=== PATIENT | female | born 1965 | race Caucasian/White ===

== ENCOUNTER 2018-04-24 19:24 | Inpatient (IN) | payer OTHER ==
[~2018-04-24] VITALS: Ht 160 cm; Wt 70.3 kg
--- NOTE | 2018-04-24 21:55 | NUR ---
PRE ADMISSION NOTE Pt is a 52 y/o female seen at intake, A&Ox4 and presents with anxiety, flushed skin, poor concentration, and disheveled appearance. Pt is a poor historian and has poor short-term and long-term memory recall. Pt is currently intoxicated from ETOH. Pt reports that she typically drinks 1.5 L of Chardonnay daily for the past 3 weeks. Pt is ambulatory with steady gait. Vital signs: BP: 134/88, HR 80, T 98.4, RR 16, 02 97% and pain 4/10 in lower back. Pt reports PMH of HTN, hyperlipidemia, HTN, back injury, anxiety, depression. Pt reports that she might have pre diabetes. Pt brought home medications, but cannot recall names other than taking Trazodone 100 mg for sleep. Educated pt that any controlled substances will not be given back, pt verbalized understanding. Educated pt about policies and rules of the unit including handling of contraband and taking vital signs Q4H. Will continue care of patient upon arrival on unit.
[2018-04-24] MEDS ORDERED: ONDANSETRON 4 MG/2 ML VIAL IM PRN (22:00)
[2018-04-24] MEDS ORDERED: LOPERAMIDE HCL 2 MG CAPSULE PO PRN (22:00)
[2018-04-24] MEDS ORDERED: LORAZEPAM 1 MG TABLET PO PRN ×2 (22:00)
[2018-04-24] MEDS ORDERED: MAGNESIUM HYDROXIDE 30 ML LIQUID UDC PO PRN (22:00)
[2018-04-24] MEDS ORDERED: MAG HYDROX/AL HYDROX/SIMETH 30 ML LIQUID UDC PO PRN (22:00)
[2018-04-24] MEDS ORDERED: HYDROXYZINE PAMOATE 25 MG CAPSULE PO PRN (22:00)
[2018-04-24] MEDS ORDERED: CLONIDINE HCL 0.1 MG TABLET PO PRN (22:00)
[2018-04-24] MEDS ORDERED: ONDANSETRON ODT 4 MG TAB.RAPDIS SL PRN (22:00)
[2018-04-24] MEDS ORDERED: MIRALAX 17 GM POWD.PACK PO PRN (22:00)
[2018-04-24] MEDS ORDERED: LORAZEPAM 2 MG/1 ML VIAL IM PRN (22:00)
[2018-04-24] MEDS ORDERED: DICYCLOMINE HCL 20 MG TABLET PO PRN (22:00)
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
[2018-04-24 23:11] LABS: BASOPHILS % (AUTO) 0.6 % (0.0-2.0); EOSINOPHILS % (AUTO) 0.1 % (0.0-7.0); HEMATOCRIT 39.9 % (31.2-41.9); HEMOGLOBIN 13.7 g/dL (10.9-14.3); LYMPHOCYTES # (AUTO) 1.3 K/uL (20.0-40.0); LYMPHOCYTES % (AUTO) 21.4 % (20.5-51.5); MEAN CORPUSCULAR HEMOGLOBIN 31.9 uug (24.7-32.8); MEAN CORPUSCULAR HGB CONC 34 g/dL (32.3-35.6); MEAN CORPUSCULAR VOLUME 92.9 fL (75.5-95.3); MONOCYTES # (AUTO) 0.3 K/uL (2.0-10.0); MONOCYTES % (AUTO) 4.9 % (0.0-11.0); NEUTROPHILS # (AUTO) 4.4 K/uL (1.8-8.9); PLATELET COUNT (AUTO) 247 K/uL (179-408)
[2018-04-24] MEDS ORDERED: FOLI-118 PO (23:13)
[2018-04-24] MEDS ORDERED: TRAZ-214 PO (23:13)
[2018-04-24] MEDS ORDERED: DISU250T7 PO (23:13)
[2018-04-24] MEDS ORDERED: HYDR-3026 PO (23:13)
[2018-04-24] MEDS ORDERED: MUPI22OI2 (23:13)
[2018-04-24] MEDS ORDERED: DULO30CA2 PO (23:13)
[2018-04-24] MEDS ORDERED: NALT50TA PO (23:13)
[2018-04-24] MEDS ORDERED: ATOR40TA PO (23:13)
[2018-04-24] MEDS ORDERED: THYR30TA2 PO (23:13)
[2018-04-24] MEDS ORDERED: THIA100T13 PO (23:13)
[2018-04-24] MEDS ORDERED: FLUO40CA49 PO (23:13)
[2018-04-24] MEDS ORDERED: GLUC-128 PO (23:13)
[2018-04-24 23:20] LABS: BILIRUBIN,TOTAL 0.5 mg/dL (0.2-1.0); CREATININE 0.8 mg/dL (0.6-1.3); MAGNESIUM 1.5 mg/dL (1.8-2.4); TOTAL PROTEIN, SERUM 7.2 g/dL (6.4-8.2)
[2018-04-24 23:29] LABS: THYROID STIMULATING HORMONE 0.925 mIU/mL (0.358-3.740)
[2018-04-25] VITALS: BP 146/97
[2018-04-25] MEDS ORDERED: THIAMINE HCL 200 MG/2 ML VIAL IM ONE
--- NOTE | 2018-04-25 | NUR ---
CIWA DEFERRED Pt is awake, appears restless and has racing thoughts. Pt intoxicated, CIWA deferred. Safety measures in place. Call light within reach. Will continue to monitor.
[2018-04-25] MEDS ORDERED: TRAZODONE 50 MG TABLET PO SCH (02:00)
[2018-04-25] MEDS: IBUPROFEN 600 MG TABLET PO PRN ×2 (02:08→20:58)
--- NOTE | 2018-04-25 02:08 | NUR ---
PRN ZOFRAN ODT AND MOTRIN ADMINISTRATION Pt reports mild nausea without vomiting. Pt states, "I feel like I just need to get out the alcohol." Pt reports headache and lower back pain 5/10. Safety measures in place. Call light within reach. Will continue to monitor.
[2018-04-25 02:14] LABS: *AMPHETAMINE, URINE NEGATIVE (NEGATIVE); *BARBITURATE, URINE NEGATIVE (NEGATIVE); *CANNABINOID, URINE NEGATIVE (NEGATIVE); *COCCAINE, URINE NEGATIVE (NEGATIVE); *OPIATE, URINE NEGATIVE (NEGATIVE); *PHENCYCLIDINE SCREEN,URINE NEGATIVE (NEGATIVE); *URINE HCG, QUAL NEGATIVE (NEGATIVE)
[2018-04-25] MEDS ORDERED: immune support (02:15)
[2018-04-25] MEDS ORDERED: ASPI-1165 PO (02:20)
[2018-04-25] MEDS ORDERED: [UNRECOGNIZED DRUG - CODE] OP (02:20)
[2018-04-25] MEDS ORDERED: D ME PO (02:20)
[2018-04-25] MEDS ORDERED: NAPR220T66 PO (02:20)
--- NOTE | 2018-04-25 02:38 | NUR ---
CARMENN MARTÍN ODT REASSESSMENT Pt reports nausea reduced to tolerable level, able to tolerable fluids and snacks. Safety measures in place. Call light within reach. Will continue to monitor.
[2018-04-25 04:00] VITALS: BP 142/86
--- NOTE | 2018-04-25 04:00 | NUR ---
CIWA 4 Pt presents with anxiety, restlessness, difficulty falling asleep, increased HR.
[2018-04-25] MEDS: ACETAMINOPHEN 325 MG TABLET PO PRN (04:52)
--- NOTE | 2018-04-25 04:52 | NUR ---
PRN TYLENOL ADMINISTRATION Pt reports back pain 11/30. Safety measures in place. Call light within reach. Will continue to monitor.
--- NOTE | 2018-04-25 05:52 | NUR ---
PRN TYLENOL REASSESSMENT Pt laying in bed with eyes closed, medication noted effective. Respirations even and unlabored. Safety measures in place. Call light within reach. Will continue to monitor.
--- NOTE | 2018-04-25 07:12 | NUR ---
END OF SHIFT Pt is a 52 y/o female admitted on 04/24/18 for ETOH withdrawal. No ordered taper at this time, had PRN Ativan available. Pt presented with anxiety, restlessness, flushed skin, headache, back pain, elevated HR and nausea. Pt received one time order for Trazodone 50 mg for sleep and PRN Zofran odt, Motrin and Tylenol. Mg 1.5, to be replaced in AM. Last CIWA 4. Pt slept 2 hours. Intake 2000 ml, void x 3, stool x 0. Safety measures in place. Call light within reach. Pts needs have been met. Endorsed to day shift nurse.
[2018-04-25 08:00] VITALS: BP 117/71
--- NOTE | 2018-04-25 08:15 | NUR ---
START OF SHIFT: Received Pt laying in bed sleeping with respirations even and unlabored. Call yin in reach. Bed locked and low. Side rails up x 2. Will awaken for assessment and med pass later.
[2018-04-25] MEDS ORDERED: MAGNESIUM OXIDE 400 MG TABLET PO ONE (09:00)
[2018-04-25] MEDS ORDERED: TUBERCULIN,PURIF.PROT.DERIV. 5 TU/0.1 ML TEST ID ONE (09:00)
--- NOTE | 2018-04-25 09:40 | NUR ---
Pt is A/O x 4. She presents with flushed face. Her hands are tremulous.Anxous mood and congruent affect noted. CIWA 11. She reports anxiety,restlessness,weakness and irritability. Walker noted at bedside to assist with ambulation.Encouraged her to ask for help when getting out of bed. PRN Ativan 1 mg po given to manage s/s of w/d. Encouraged increased fluids to assist in facilitating detox process. Will continue to monitor and offer support.
[2018-04-25] MEDS: MULTIVITAMINS,THERAPEUTIC TABLET PO SCH (09:42)
[2018-04-25] MEDS: FOLIC ACID 1 MG TABLET PO SCH (09:42)
[2018-04-25] MEDS: THIAMINE HCL 100 MG TABLET PO SCH (09:42)
[2018-04-25] MEDS ORDERED: 6 DAY PHENOBARBITAL TAPER -SERENITY PROTOCOL PO PRN (10:15)
--- NOTE | 2018-04-25 10:40 | NUR ---
PRN Ativan effective. CIWA 7. She states she feels fatigued and would like to sleep. Encouraged bed rest and fluids today.
[2018-04-25] MEDS: DULOXETINE 30 MG CAPSULE.DR PO SCH (11:30)
[2018-04-25 12:00] VITALS: BP 127/76
--- NOTE | 2018-04-25 12:30 | NUR ---
CIWA Deferred as Pt is asleep. Safety measures in place. Call yin in reach.
[2018-04-25] MEDS: PHENOBARBITAL 60 MG TABLET PO SCH ×2 (15:19→20:58)
[2018-04-25 16:00] VITALS: BP 122/78
--- NOTE | 2018-04-25 19:30 | NUR ---
START OF SHIFT Pt is a 52 y/o female admitted on 04/24/18 for ETOH withdrawal. Pt is on a 5 day Phenobarbital taper that started today, tolerating well. Pt received PRN Ativan 1 mg and last CIWA 11 during day shift. Upon assessment pt presents with anxiety, poor concentration, tremors, headache, flushed skin, sweats, restless legs, pins/needles sensation in lower extremities, difficultly falling asleep, elevated HR and is withdrawn. Medications due. Safety measures in place. Call light within reach. Will continue to monitor.
--- NOTE | 2018-04-25 19:32 | NUR ---
END OF SHIFT: Pt started on Phenobarbital taper this afternoon. She received Ativan 1 mg PO PRN per MD this AM and effective. She stayed in bed and slept most of shift. Last CIWA 11. She is a poor historian but did mention having been diagnosed with Wernicke-Korsakoff in the past. She was also given a PT evaluation. Encouraged her to ask for assistance to bathroom. Safety measures in place. Will pass shift report to oncoming night nurse.
[2018-04-25 20:00] VITALS: BP 148/91
--- NOTE | 2018-04-25 20:00 | NUR ---
CIWA 16 Pt presents with anxiety, poor concentration, tremors, headache, flushed skin, sweats, restless legs, pins/needles sensation in lower extremities, difficultly falling asleep, elevated HR and is withdrawn.
[2018-04-25] MEDS: TRAZODONE 100 MG TABLET PO SCH (20:58)
[2018-04-25] MEDS: ATORVASTATIN 40 MG TABLET PO SCH (20:58)
--- NOTE | 2018-04-25 20:58 | NUR ---
PRN MOTRIN ADMINISTRATION Pt reports headache and neck and back pain 01/30. Safety measures in place. Call light within reach. Will continue to monitor.
--- NOTE | 2018-04-25 21:58 | NUR ---
PRN MOTRIN REASSESSMENT Pt reports pain reduced to tolerable level in head, neck and back. Safety measures in place. Call light within reach. Will continue to monitor.
[2018-04-26] VITALS: BP 146/86
--- NOTE | 2018-04-26 | NUR ---
CIWA DEFERRED Pt laying in bed with eyes closed, CIWA deferred, to be assessed when pt is awake per orders. Respirations even and unlabored. Safety measures in place. Call light within reach. Will continue to monitor.
[2018-04-26 04:00] VITALS: BP 145/87
[2018-04-26] MEDS: THYROID 60 MG TABLET PO SCH (06:57)
--- NOTE | 2018-04-26 07:06 | NUR ---
END OF SHIFT Pt is a 52 y/o female admitted on 04/24/18 for ETOH withdrawal. Pt is on a 5 day Phenobarbital taper that started on 04/25/18, tolerating well. Pt presented with anxiety, poor concentration, tremors, headache, flushed skin, sweats, restless legs, pins/needles sensation in lower extremities, difficultly falling asleep, elevated HR and was withdrawn. Scheduled medications and PRN Motrin administered, effective in S/S of withdrawal as verbalized by pt. Last CIWA 16. Pt slept 9 hours. Intake 1182 ml, void x 2, stool x 0. Safety measures in place. Call light within reach. Pts needs have been met. Endorsed to day shift nurse.
[2018-04-26 08:00] VITALS: BP 134/79
--- NOTE | 2018-04-26 08:00 | NUR ---
Start Of Shift / CIWA 16 Pt is a 52 y/o M admitted on 04/20/18 for ETOH withdrawal and opiate withdrawal. Pt continues on a 5 day phenobarbital taper; today is the second day and tolerating well. Received pt a/ox4, respirations even and unlabored. Pt has a disheveled appearance, flushed, presents anxiety, agitation, restlessness, states she has a groggy head, c/o burning and tingling feet which she states she had before but is increased, headache /10, diarrhea, and tremors are noted. Pt states she likes the door kept open and requests that no one closes it. Educated pt with todays med regimen and plan of care. Encouraged pt to increase fluids to facilitate in detox. Side rails upx2, bed in lowest position. Call light is within reach. Safety measures in place. Will continue to monitor.
[2018-04-26] MEDS: MULTIVITAMINS,THERAPEUTIC TABLET PO SCH (08:44)
[2018-04-26] MEDS: THIAMINE HCL 100 MG TABLET PO SCH (08:44)
[2018-04-26] MEDS: FOLIC ACID 1 MG TABLET PO SCH (08:44)
[2018-04-26] MEDS: FLUOXETINE HCL 20 MG CAPSULE PO SCH (08:45)
[2018-04-26] MEDS: PHENOBARBITAL 60 MG TABLET PO SCH ×4 (08:45→21:05)
[2018-04-26] MEDS: DULOXETINE 30 MG CAPSULE.DR PO SCH (08:45)
[2018-04-26] MEDS: ACETAMINOPHEN 325 MG TABLET PO PRN (08:54)
[2018-04-26] MEDS: IBUPROFEN 600 MG TABLET PO PRN ×2 (08:54→21:17)
--- NOTE | 2018-04-26 08:54 | NUR ---
PRN Ibuprofen 600 mg, tylenol 650 mg, imodium 4 mg, po prns given for diarrhea, and headache 7/10 pain. Will monitor and reassess.
--- NOTE | 2018-04-26 09:54 | NUR ---
Reassessment Pt verbalized prn meds have been effective for decreasing headache to 3/10 and pt states she is not had an episode of diarrhea yet. Will continue to monitor.
--- NOTE | 2018-04-26 10:26 | NUR ---
Therapist prompted client to attend group therapy.
[2018-04-26 12:00] VITALS: BP 140/85
--- NOTE | 2018-04-26 12:00 | NUR ---
CIWA 16 Pt appears flushed, exhibits racing thoughts, flight of ideas, increased anxiety, agitation, restlessness, states she has a groggy head, c/o burning and tingling and pain in the feet, increase in headache 7/10, diarrhea, and tremors are noted. Scheduled phenobarbital to be given. Encouraged pt to use diversional non-pharmalogical methods and deep breathing exercises. Will continue to monitor.
[2018-04-26 14:11] LABS: HEPATITIS B SURFACE AG Negative (Negative)
[2018-04-26 16:00] VITALS: BP 135/86
--- NOTE | 2018-04-26 16:30 | NUR ---
CIWA 15 Pt just have exited group, appears flushed and anxious, exhibits racing thoughts, flight of ideas, agitation, restlessness, c/o pain and burning sensation on the feet /10, headache /10, diarrhea, and tremors are noted. Pt stated she was not feeling social and wanted to stay in her room for dinner. Scheduled phenobarbital to be given. Refuses prn meds. Scheduled phenobarbital to be given. Encouraged pt to use diversional non-pharmalogical methods and deep breathing exercises. Will continue to monitor.
--- NOTE | 2018-04-26 18:40 | NUR ---
End Of Shift Pt exhibited increased emobtional amplitude, racing thoughts, and flight of ideas. Pt verbalized her feelings about treatment and sobriety. Pt was able to attend all groups however was anxious and wanted to be alone after mid-afternoon group. Pt c/o persistent headaches and tingling, burning sensation of the feet. Ibuprofen 600 mg, acetaminophen 650 mg, imodium 4 mg po prns given during shift. Last CIWA 15 @1600. Safety measures in place.
--- NOTE | 2018-04-26 18:53 | NUR ---
START OF SHIFT NOTE: This is report on patient, a 52 year old female, admitted to [facility] two days ago for medically supervised Alcohol withdrawal. The patient continues ordered 5 day Phenobarbital taper (day #2), which tolerated well. Patient is alert and oriented x4, with steady gait, with clear soft speech, cooperative and verbally appropriate. Patient appears sad, worried, with anxious mood and flat affect. Patient noted disheveled, unkempt, with uncombed hair. Patient denies a history of suicidal ideations. Patient denies history withdrawal induced cardiac complications r/t alcohol withdrawal. Patient denies SI/HI. CIWA=15 at 1600. Throughout day shift patient experienced moderate withdrawal symptoms such as anxiety, agitation, irritability, nervousness, headache, sweating, bilateral tremors, restlessness, and fatigue, per day shift nurse report. PRN Ibuprofen 600 mg PO administrated for severe headache "7/10" at 0854, PRN Tylenol 650 mg PO administrated for headache "7/10" at 0854, PRN Imodium 4 mg PO administrated for diarrhea at 0854, and were effective. Patient remains compliant with treatment, medications, and diet regimen. Encouraged to attend group activities. Safe and calm environment provided. Encouraged to intake fluids as tolerated. All needs met. Safety measures: Call light within reach, bed locked in lowest position, padded bed rails up x2. Endorsed by day shift nurse.
[2018-04-26 20:00] VITALS: BP 120/77
--- NOTE | 2018-04-26 20:00 | NUR ---
CIWA ASSESSMENT CIWA=13 at 1999. Patient experienced moderate withdrawal symptoms such as anxiety, agitation, irritability, nervousness, sweating, bilateral tremors, and restlessness. Ordered medications scheduled for 2099 will be administrated. Safe and calm environment provided. All needs met. Safety measures: Call light within reach, bed locked in lowest position, padded bed rails up x2. Will continue to monitor closely.
[2018-04-26] MEDS: TRAZODONE 100 MG TABLET PO SCH (21:05)
[2018-04-26] MEDS: ATORVASTATIN 40 MG TABLET PO SCH (21:05)
--- NOTE | 2018-04-26 21:17 | NUR ---
PRN MOTRIN (IBUPROFEN 600 MG TABLET) 600 MG PO ADMINISTRATION PRN Motrin 600 mg PO administrated for headache "01/30" at 2117. Patient tolerated well. Encouraged to intake fluids as tolerated. Safe and calm environment provided. Encouraged to intake fluids as tolerated. All needs met. Safety measures: Call light within reach, bed locked in lowest position, padded bed rails up x2. Will continue to monitor closely.
--- NOTE | 2018-04-26 22:17 | NUR ---
PRN RE-ASSESSMENT The patient sleeping. Respirations are even and unlabored. RR:15. PRN Motrin 600 mg PO administrated for headache "01/30" at 2117 was effective. Safe and calm environment provided. All needs met. Safety measures: Call light within reach, bed locked in lowest position, padded bed rails up x2. Will continue to monitor closely.
--- NOTE | 2018-04-27 | NUR ---
VS REFUSED, CIWA DEFERRED Patient sleeping on her side, respirations are unlabored and even. RR:14. Patient refused VS at 0000, CIWA deferred at 0000, to be assessed while patient will awake. Safe and calm environment provided. All needs met. Safety measures: Call light within reach, bed locked in lowest position, padded bed rails up x2.
--- NOTE | 2018-04-27 04:00 | NUR ---
VS REFUSED, CIWA DEFERRED Patient sleeping on her side, respirations are unlabored and even. RR:15. Patient refused VS at 0400, CIWA deferred at 0400, to be assessed while patient will awake. Safe and calm environment provided. All needs met. Safety measures: Call light within reach, bed locked in lowest position, padded bed rails up x2.
[2018-04-27 06:00] VITALS: BP 132/84
--- NOTE | 2018-04-27 06:00 | NUR ---
CIWA ASSESSMENT CIWA=13 at 0600. Patient experienced moderate withdrawal symptoms such as anxiety, agitation, irritability, nervousness, sweating, bilateral tremors, headache, and restlessness. Safe and calm environment provided. All needs met. Safety measures: Call light within reach, bed locked in lowest position, padded bed rails up x2. Will continue to monitor closely.
[2018-04-27] MEDS: THYROID 60 MG TABLET PO SCH (06:10)
[2018-04-27] MEDS: ACETAMINOPHEN 325 MG TABLET PO PRN ×3 (06:10→23:47)
--- NOTE | 2018-04-27 06:10 | NUR ---
PRN TYLENOL 650 MG PO ADMINISTRATION PRN Tylenol 650 mg PO administrated for headache "03/01" at 0610. Patient tolerated well. Encouraged to intake fluids as tolerated. Safe and calm environment provided. Encouraged to intake fluids as tolerated. All needs met. Safety measures: Call light within reach, bed locked in lowest position, padded bed rails up x2. Will continue to monitor closely.
--- NOTE | 2018-04-27 07:10 | NUR ---
PRN RE-ASSESSMENT The patient sleeping. Respirations are even and unlabored. RR:15. PRN Tylenol 650 mg PO administrated for insomnia at 0610 was effective. Safe and calm environment provided. Encouraged to intake fluids as tolerated. All needs met. Safety measures: Call light within reach, bed locked in lowest position, padded bed rails up x2. Will continue to monitor closely.
--- NOTE | 2018-04-27 07:22 | NUR ---
END OF SHIFT NOTE: This is report on patient,a 52 year old female, admitted to [facility] two days ago for medically supervised Alcohol withdrawal. The patient continues ordered 5 day Phenobarbital taper (day #3), which tolerated well. Patient is alert and oriented x4, with steady gait, with clear soft speech, cooperative and verbally appropriate. Patient appears sad, worried, with anxious mood and flat affect. Patient noted disheveled, unkempt, with uncombed hair. CIWA=13 at 2000. Patient refused VS at 0000 and at 0400, CIWA differed at 0000 and 0400. The most recent CIWA=13 AT 0600. Patient experienced moderate withdrawal symptoms such as anxiety, agitation, irritability, nervousness, sweating, bilateral tremors, and restlessness. PRN Motrin 600 mg PO administrated for headache "6/10" at 2117, PRN Tylenol 650 mg PO administrated for headache "7/10" at 0610, and were effective. Patient remains compliant with treatment, medications, and diet regimen. Patient slept for 6 hours, intake 1,260 ml, output: voided x1. Safe and calm environment provided. Encouraged to intake fluids as tolerated. All needs met. Safety measures: Call light within reach, bed locked in lowest position, padded bed rails up x2. Endorsed to day shift nurse.
--- NOTE | 2018-04-27 08:00 | NUR ---
Start Of Shift / CIWA 14 Pt is a 52 y/o M admitted on 04/20/18 for ETOH withdrawal and opiate withdrawal. Pt continues on a 5 day phenobarbital taper; today is the third day and tolerating well. Received pt a/ox4, respirations even and unlabored. Pt has flushed skin, a disheveled appearance, presents anxiety, agitation, restlessness, c/o burning and tingling feet which she states she had before but has increased during withdrawal, persistent headache /10, increased emotional amplitude, racing thoughts, flight of ideas, dysphoria, anhedonia, and tremors are noted. Pt requests to have the door kept open at all times. Educated pt with todays med regimen and plan of care. Encouraged pt to increase fluids to facilitate in detox. Side rails upx2, bed in lowest position. Call light is within reach. Safety measures in place. Will continue to monitor.
[2018-04-27 08:01] VITALS: BP 129/76
[2018-04-27] MEDS: PHENOBARBITAL 60 MG TABLET PO SCH ×3 (08:29→20:40)
[2018-04-27] MEDS: DULOXETINE 30 MG CAPSULE.DR PO SCH (08:30)
[2018-04-27] MEDS: FLUOXETINE HCL 20 MG CAPSULE PO SCH (08:30)
[2018-04-27] MEDS: FOLIC ACID 1 MG TABLET PO SCH (08:31)
[2018-04-27] MEDS: THIAMINE HCL 100 MG TABLET PO SCH (08:31)
[2018-04-27] MEDS: MULTIVITAMINS,THERAPEUTIC TABLET PO SCH (08:31)
[2018-04-27] MEDS: LOPERAMIDE HCL 2 MG CAPSULE PO PRN ×2 (08:52→14:45)
--- NOTE | 2018-04-27 08:52 | NUR ---
PRN Imodium 2 mg po prn given for diarrhea. Pt verbalized she had diarrhea x2 during the night. Will monitor and reassess.
--- NOTE | 2018-04-27 09:52 | NUR ---
Reassessment Pt verbalized she has not yet had another bout of diarrhea but is not totally sure yet if it has worked.
[2018-04-27 12:00] VITALS: BP 137/82
--- NOTE | 2018-04-27 12:16 | NUR ---
CIWA 14 Pt has just returned from group and is having elevated anxiety, agitation, restlessness, persistent headache, increased emotional amplitude, racing thoughts, flight of ideas, dysphoria, anhedonia, and tremors are noted. Refuses acetaminophen and ibuprofen for headache. Pt requests to take a shower and rest. Safety measures in place.
--- NOTE | 2018-04-27 13:59 | NUR ---
Therapist prompted client to attend group therapy.
[2018-04-27] MEDS: IBUPROFEN 600 MG TABLET PO PRN (14:45)
--- NOTE | 2018-04-27 14:45 | NUR ---
PRN Imodium 4 mg, acetaminophen 650 mg, ibuprofen 600 mg po prns for c/o loose stools, headache, hand and feet pain; pt states pain is d/t wernickes disease. Will monitor and reassess.
[2018-04-27 16:30] VITALS: BP 138/86
--- NOTE | 2018-04-27 16:32 | NUR ---
Reassessment Pt reported med was partially effective in decreasing pain in her hands, feet and head. Pt reports having no diarrhea at this time. Will continue to monitor.
--- NOTE | 2018-04-27 16:34 | NUR ---
CIWA 15 Pt is fidgety, appears flushed, has elevated anxiety, agitation, restlessness, increased emotional amplitude, racing thoughts, dysphoria, anhedonia, had diarrhea, c/o pain in her hands, feet and head and tremors are noted. Pt was given ibuprofen, acetaminophen, and imodium po prns. Safety measures in place. Will continue to monitor.
--- NOTE | 2018-04-27 18:51 | NUR ---
START OF SHIFT NOTE: Endorsed patient, a 52 year old female, continues ordered 5 day Phenobarbital taper for Alcohol withdrawal. The patient which tolerated well. She is alert and oriented x4, cooperative, with steady gait, clear soft speech, and verbally appropriate. Latest CIWA=15 at 1600. During day shift patient presented with anxiety, agitation, irritability, nervousness, stomach cramps, diarrhea, headache, sweating, bilateral tremors, restlessness, and fatigue, per day shift nurse report. PRN Ibuprofen 600 mg PO administrated for severe headache "7/10" at 1445, PRN Tylenol 650 mg PO administrated for headache "7/10" at 1445, PRN Imodium 4 mg PO administrated for diarrhea at 0852, at 1445, and were effective. Patient remains compliant with treatment, medications, and diet regimen. Encouraged to attend group activities. Safe and calm environment provided. Encouraged to intake fluids as tolerated. All needs met. Safety measures: Call light within reach, bed locked in lowest position, padded bed rails up x2. Endorsed by day shift nurse.
--- NOTE | 2018-04-27 18:51 | NUR ---
End Of Shift Pt c/o diarrhea, persistent headaches and tingling, burning sensation of the hands, feet, and head; pt stated it is due to wernickes disease however is amplified due to w/d. Ibuprofen 600 mg, acetaminophen 650 mg, imodium 2 mg x2 po prns given during shift. Last CIWA 15 @1600. Safety measures in place.
[2018-04-27 20:00] VITALS: BP 130/78
--- NOTE | 2018-04-27 20:00 | NUR ---
CIWA ASSESSMENT CIWA=14 at 2000. Patient experience anxiety, agitation, irritability, nervousness, sweating, bilateral tremors, mild headache, restlessness, and fatigue. Ordered medications scheduled for 2100 will be administrated. Safe and calm environment provided. All needs met. Safety measures: Call light within reach, bed locked in lowest position, padded bed rails up x2. Will continue to monitor closely.
[2018-04-27] MEDS: ATORVASTATIN 40 MG TABLET PO SCH (20:40)
[2018-04-27] MEDS: TRAZODONE 100 MG TABLET PO SCH (20:40)
[2018-04-27] MEDS: diphenhydrAMINE 50 MG CAPSULE PO PRN (23:47)
--- NOTE | 2018-04-27 23:47 | NUR ---
PRN PRN Tylenol 650 mg PO administrated for headache "7/10" at 2347, PRN Benadryl 50 mg PO administrated for insomnia at 2347. Patient tolerated well. Encouraged to intake fluids as tolerated. Safe and calm environment provided. Encouraged to intake fluids as tolerated. All needs met. Safety measures: Call light within reach, bed locked in lowest position, padded bed rails up x2. Will continue to monitor closely.
[2018-04-28] VITALS: BP 113/70
--- NOTE | 2018-04-28 | NUR ---
CIWA ASSESSMENT CIWA=14 at 0000. Patient c/o anxiety, agitation, irritability, nervousness, sweating, bilateral tremors, mild headache, restlessness, and fatigue. PRN medications will be administrated. Safe and calm environment provided. All needs met. Safety measures: Call light within reach, bed locked in lowest position, padded bed rails up x2. Will continue to monitor closely.
--- NOTE | 2018-04-28 00:47 | NUR ---
PRN RE-ASSESSMENT The patient sleeping. Respirations are even and unlabored. RR:16. PRN Tylenol 650 mg PO administrated for headache "7/10" at 2347, PRN Benadryl 50 mg PO administrated for insomnia at 2347 were effective. Safe and calm environment provided. All needs met. Safety measures: Call light within reach, bed locked in lowest position, padded bed rails up x2. Will continue to monitor closely.
--- NOTE | 2018-04-28 04:00 | NUR ---
VS REFUSED, CIWA DEFERRED Patient sleeping on her side, respirations are unlabored and even. RR:16. Patient refused VS at 0400, CIWA deferred at 0400, to be assessed while patient will awake. Safe and calm environment provided. All needs met. Safety measures: Call light within reach, bed locked in lowest position, padded bed rails up x2.
[2018-04-28] MEDS: THYROID 60 MG TABLET PO SCH (07:16)
--- NOTE | 2018-04-28 07:36 | NUR ---
END OF SHIFT NOTE: The patient is alert and oriented x4, with steady gait, clear soft speech. She continues ordered 5 day Phenobarbital taper for Alcohol withdrawal, tolerated well. Withdrawal symptoms were closely monitored. CIWA=14 at 2000. The most recent CIWA=14 at 0000. Patient was noted with anxiety, agitation, irritability, nervousness, headache, generalized body aches, sweating, bilateral tremors, restlessness, and fatigue. PRN Tylenol 650 mg PO administered for headache "7/10" at 2347, PRN Benadryl 50 mg PO administered for insomnia at 2347, and were effective. Patient remains compliant with treatment, medications, and diet regimen. Patient was encouraged to attend group activities. Patient slept for a total of 5 hours, intake 2,105 ml, output: voided x3. Safe and calm environment provided. Patient was encouraged to intake fluids as tolerated. All needs met. Safety measures in place: Call light within reach, bed locked in lowest position, and padded bed rails up x2. Endorsed to day shift nurse.
[2018-04-28 08:00] VITALS: BP 119/79
--- NOTE | 2018-04-28 08:00 | NUR ---
Start of Shift Notes/CIWA Assessment: Received patient in her room. Awake, alert and verbally responsive. Oriented x 4. Denies S/I or H/I noted. No AV hallucinations. Patient appears anxious, restless while sitting on the chair. She frequently shifts her body position. Gross tremors and sweating noted. She complains of 5/10 headache. CIWA 14. Patient is a 52 year old female admitted for ETOH withdrawal who was placed on a 5-day Phenobarbital taper as ordered. No adverse reactions noted. Educated patient on her current plan of care for the day and her medication regimen. Encouraged oral fluid intake and encouraged group participation to learn new skills to prevent relapse. Will continue to monitor.
[2018-04-28] MEDS: FLUOXETINE HCL 20 MG CAPSULE PO SCH (08:46)
[2018-04-28] MEDS: PHENOBARBITAL 60 MG TABLET PO SCH ×2 (08:46→20:49)
[2018-04-28] MEDS: ACETAMINOPHEN 325 MG TABLET PO PRN ×2 (08:46→20:49)
[2018-04-28] MEDS: THIAMINE HCL 100 MG TABLET PO SCH (08:46)
[2018-04-28] MEDS: DULOXETINE 30 MG CAPSULE.DR PO SCH (08:46)
[2018-04-28] MEDS: MULTIVITAMINS,THERAPEUTIC TABLET PO SCH (08:46)
[2018-04-28] MEDS: FOLIC ACID 1 MG TABLET PO SCH (08:46)
--- NOTE | 2018-04-28 08:46 | NUR ---
Tylenol 650 mg PO given: Patient complains of 5/10 headache. PRN Tylenol 650 mg PO given. Will monitor for effectiveness.
--- NOTE | 2018-04-28 09:46 | NUR ---
Re-assessment: Tylenol Patient verbalizes relief from headache. She verbalizes "My headache is gone. Thank you." PRN Tylenol was effective.
[2018-04-28 12:00] VITALS: BP 129/89
--- NOTE | 2018-04-28 12:18 | NUR ---
CIWA Assessment: CIWA 13, patient continues to present with s/s of withdrawal m/b gross tremors, headache, anxiety, agitation, restlessness, increased emotional amplitude, facial flushing and generalized discomfort. Support provided. PRNs offered. Will continue to monitor.
--- NOTE | 2018-04-28 12:56 | NUR ---
Therapist prompted client to attend twice daily group therapy sessions.
[2018-04-28 16:00] VITALS: BP 132/94
--- NOTE | 2018-04-28 16:18 | NUR ---
CIWA Assessment: CIWA 11, patient continues to present with gross tremors, anxiety, agitation, headache, restlessness, difficulty concentrating, paresthesia, anhedonia and generalized discomfort. Offered PRNs. Support provided. Will continue to monitor closely.
--- NOTE | 2018-04-28 19:10 | NUR ---
End of Shift Notes: Patient continues to be on 5-day Phenobarbital taper as ordered to manage symptoms related to ETOH withdrawal. VS monitored closely. No significant abnormalities noted. Withdrawal symptoms were closely monitored. Initial CIWA 14, patient presented with headache, gross tremors, restlessness, anxiety, agitation, restlessness, intermittent perspiration and generalized discomfort. Last CIWA 11. Medicated patient with Tylenol 650 mg PO at 0846 with help. Patient was able to participate in group and activities despite her withdrawal symptoms. Safety precautions in place. All needs met and attended. Will continue to monitor.
--- NOTE | 2018-04-28 19:10 | NUR ---
START OF SHIFT NOTE: Presented patient is alert and oriented x4, continuously closely monitoring for alcohol withdrawal under medical supervision. The patient tolerated well with ordered 5 day Phenobarbital taper, tolerated well. The patient remains compliant with care plans, treatment, medications, and diet regimen. The most recent CIWA= 11 at 1618. Patient noted with anxiety, agitation, nervousness, sweating, tremors, generalized body aches, headache, restlessness, and fatigue. The patient increased ADL, was attended group activities during day shift. PRN Tylenol 650 mg PO administrated for headache at 0846 was effective, per day shift nurse report. The patient was encouraged fluids to intake as tolerated. All needs met. Safe and calm environment provided. Safety measures in place: Call light within reach, bed is locked in lowest position, padded bed rails up bilaterally. The patient endorsed by day shift nurse. Will continue to monitor closely.
[2018-04-28 20:00] VITALS: BP 146/98
--- NOTE | 2018-04-28 20:00 | NUR ---
CIWA ASSESSMENT CIWA=12 at 1999. The patient c/o anxiety, agitation, irritability, nervousness, headache, bilateral tremors, sweating, restlessness, and fatigue. Scheduled and PRN medications will be administrated as ordered. Safe and calm environment provided. All needs met. Safety measures: Call light within reach, bed locked in lowest position, padded bed rails up x2. Will continue to monitor closely.
[2018-04-28] MEDS: ATORVASTATIN 40 MG TABLET PO SCH (20:49)
[2018-04-28] MEDS: diphenhydrAMINE 50 MG CAPSULE PO PRN (20:49)
[2018-04-28] MEDS: TRAZODONE 100 MG TABLET PO SCH (20:49)
--- NOTE | 2018-04-28 20:49 | NUR ---
PRN TYLENOL 650 MG PO, BENADRYL 50 MG PO ADMINISTRATION PRN Tylenol 650 mg PO administrated for headache at 2048, PRN Benadryl 50 mg PO administrated for insomnia at 2048. The patient tolerated well, and was encouraged fluids to intake as tolerated. All needs met. Safe and calm environment provided. Safety measures in place: Call light within reach, bed is locked in lowest position, padded bed rails up bilaterally. Will continue to monitor closely.
--- NOTE | 2018-04-28 21:49 | NUR ---
PRN RE-ASSESSMENT The patient sleeping. Respirations are even and unlabored. RR:15. PRN Tylenol 650 mg PO administrated for headache at 2048, PRN Benadryl 50 mg PO administrated for insomnia at 2048 were effective. Safe and calm environment provided. All needs met. Safety measures: Call light within reach, bed locked in lowest position, padded bed rails up x2. Will continue to monitor closely.
[2018-04-29] VITALS: BP 136/90
--- NOTE | 2018-04-29 | NUR ---
CIWA ASSESSMENT CIWA=13 at 0000. Patient noted with increased anxiety, agitation, irritability, nervousness, mild headache, bilateral tremors, sweating, restlessness, and fatigue. PRN medications will be administrated as ordered. Safe and calm environment provided. All needs met. Safety measures: Call light within reach, bed locked in lowest position, padded bed rails up x2. Will continue to monitor closely.
[2018-04-29] MEDS: IBUPROFEN 600 MG TABLET PO PRN ×2 (00:15→20:38)
--- NOTE | 2018-04-29 00:16 | NUR ---
PRN MOTRIN (IBUPROFEN 600 MG TABLET) 600 MG PO, PRN CLONIDINE 0.1 MG PO ADMINISTRATION PRN Motrin 600 mg PO administrated for headache "6/10" at 0015, PRN Clonidine 0.1 mg PO administered for anxiety at 0016. Patient tolerated well, and was encouraged to intake fluids as tolerated. Safe and calm environment provided. All needs met. Safety measures: Call light within reach, bed locked in lowest position, padded bed rails up x2. Will continue to monitor closely.
--- NOTE | 2018-04-29 01:16 | NUR ---
PRN RE-ASSESSMENT PRN Motrin 600 mg PO administrated for headache "01/30" at 0015, PRN Clonidine 0.1 mg PO administered for anxiety at 0016 were effective. The patient is sleeping. Respirations are unlabored. and even. RR=14. Safe and calm environment provided. All needs met. Safety measures in place: Call light within reach, bed locked in lowest position, and padded bed rails up x2. Will continue to monitor closely.
--- NOTE | 2018-04-29 04:00 | NUR ---
VS REFUSED, CIWA DEFERRED Patient sleeping on her side, respirations are unlabored and even. RR:14. Patient refused VS, CIWA deferred , to be assessed while patient will awake. Safe and calm environment provided. All needs met. Safety measures: Call light within reach, bed locked in lowest position, padded bed rails up x2. Safe and calm environment provided. All needs met. Safety measures: Call light within reach, bed locked in lowest position, padded bed rails up x2. Will continue to monitor closely.
[2018-04-29] MEDS: THYROID 60 MG TABLET PO SCH (06:53)
--- NOTE | 2018-04-29 07:14 | NUR ---
END OF SHIFT NOTE: Presented patient is alert and oriented x4, continuously closely monitoring under medical supervision. The patient tolerated well with ordered 5 day Phenobarbital taper for alcohol withdrawal. CIWA=12 at 2000. Latest CIWA= 13 at 0000. Patient noted with anxiety, agitation, nervousness, sweating, tremors, generalized body aches, headache, restlessness, and fatigue. The patient increased activities. PRN Tylenol 650 mg PO administrated for headache at 2048, PRN Benadryl 50 mg PO administrated for insomnia at 2048, PRN Motrin 600 mg PO administrated for headache "6/10" at 14, PRN Clonidine 0.1 mg PO administered for anxiety at 001, and were effective. The patient remains compliant with medications. The patient was encouraged to fluids intake as tolerated. The patient was encouraged to attend group activities. Patient slept for 5 hours, intake 3,481 ml, output: voided x4, stool x1. Safe and calm environment provided. Needs attended. Call light in reach, bed locked in low, padded side rails up as appropriate. The patient was endorsed to day shift nurse.
[2018-04-29 08:00] VITALS: BP 126/77
[2018-04-29] MEDS: MULTIVITAMINS,THERAPEUTIC TABLET PO SCH (08:54)
[2018-04-29] MEDS: FOLIC ACID 1 MG TABLET PO SCH (08:55)
[2018-04-29] MEDS: DULOXETINE 30 MG CAPSULE.DR PO SCH (08:55)
[2018-04-29] MEDS: FLUOXETINE HCL 20 MG CAPSULE PO SCH (08:55)
[2018-04-29] MEDS: THIAMINE HCL 100 MG TABLET PO SCH (08:55)
[2018-04-29] MEDS ORDERED: PHENOBARBITAL 60 MG TABLET PO SCH (09:00)
--- NOTE | 2018-04-29 09:23 | NUR ---
Start of Shift Notes/CIWA Assessment: Received patient in her room. Awake, alert and verbally responsive. Oriented x 4. Denies S/I or H/I noted. No AV hallucinations. Patient appears anxious, agitated, restless with noted gross tremors while in bed. She complains of intermittent episodes of sweats and verbalizes complains of lucid dreams. CIWA 14. Patient is a 52 year old female admitted for ETOH withdrawal who was placed on a 5-day Phenobarbital taper as ordered. No adverse reactions noted. Last day of taper today. Educated patient on her current plan of care for the day and her medication regimen. Encouraged oral fluid intake and encouraged group participation to learn new skills to prevent relapse. Per night report, patient was given PRN Tylenol, Motrin, Clonidine, and Benadryl given during the night. Last CIWA 14, and slept for a total of 5 hours. Will continue to monitor.
[2018-04-29 12:00] VITALS: BP 137/81
--- NOTE | 2018-04-29 12:00 | NUR ---
CIWA Assessment: CIWA 12, patient continues to present with s/s of withdrawal m/b restlessness, irritability, anxiety, agitation, gross tremors, fatigue and malaise. PRNs offered. Support provided.
[2018-04-29 16:00] VITALS: BP 124/84
--- NOTE | 2018-04-29 16:21 | NUR ---
CIWA Assessment: CIWA 11, patient presented with gross tremors, anxiety, agitation, restlessness, intermittent perspiration and fatigue. Support provided.
[2018-04-29] MEDS ORDERED: CLON0.1T14 PO (17:24)
[2018-04-29] MEDS ORDERED: HYDR-3895 PO (17:24)
[2018-04-29] MEDS ORDERED: IBUP-1955 PO (17:24)
--- NOTE | 2018-04-29 19:01 | NUR ---
End of Shift Notes: Patient completed her 5-day Phenobarbital taper as ordered. No adverse reactions noted. Withdrawal symptoms were closely monitored. Initial CIWA 14, patient presented with gross tremors, anxiety, agitation, lucid dreams, diaphoresis, myalgia, depression and generalized discomfort. Last CIWA 11. Patient verbalizes that Phenobarbital has been effective in reducing her withdrawal symptoms. Requires encouragement to participate in group and activities due to self isolation. All needs met and attended. Will continue to monitor closely.
--- NOTE | 2018-04-29 19:15 | NUR ---
Start Of Shift: Patient is a 52 yr old female who was admitted to [facility] on 04/24/18 for a medically supervised withdrawal from ETOH, she has completed a 5 day Phenobarbital taper. No PRN medications were required or requested on day shift, her last CIWA was 11 @1600. Currently she is in the H&I meeting in the Rec Room. Will continue to follow MD plan of care and offer support and encouragement.
--- NOTE | 2018-04-29 20:00 | NUR ---
CIDC 12 Withdrawal symptoms present as bilateral hand tremors, headache, increased anxiety, restlessness and depressed sad affect. Motrin and Tylenol given for headache and Trazodone for sleep aid per request
[2018-04-29] MEDS: ATORVASTATIN 40 MG TABLET PO SCH (20:38)
[2018-04-29] MEDS: ACETAMINOPHEN 325 MG TABLET PO PRN (20:38)
[2018-04-29] MEDS: TRAZODONE 100 MG TABLET PO SCH (20:38)
--- NOTE | 2018-04-29 20:38 | NUR ---
PRN Tylenol 650mg PO and Motrin 400mg PO given for headache 4/10
--- NOTE | 2018-04-29 21:38 | NUR ---
PRN Reassess Pt reports headache 2/10 medications effective
[2018-04-29 22:00] VITALS: BP 142/86
[2018-04-30] VITALS: BP 134/80
--- NOTE | 2018-04-30 | NUR ---
CIWA/Vitals Deferred due to patient request, breathing even and unlabored, side rails up x2, call light within reach
--- NOTE | 2018-04-30 04:00 | NUR ---
CIWA/Vitals Deferred due to patient request, breathing even and unlabored, side rails up x2, call light within reach
[2018-04-30] MEDS: THYROID 60 MG TABLET PO SCH (06:49)
--- NOTE | 2018-04-30 07:08 | NUR ---
End Of Shift : Patient is a 52 yr old female who was admitted to [facility] on 04/24/18 for a medically supervised withdrawal from ETOH, she has completed a 5 day Phenobarbital taper and is to be discharged this AM. PRN medications given on PM shift: Motrin and Tylenol for headache. Her withdrawal symptoms have included bilateral hand tremors, increased anxiety and restlessness. She had a fluid intake of 1355ML, 3 Voids and 0 BM, her last CIWA was 12 @ 8pm and she slept for 8 hours. Continue to follow MD plan for discharge. Endorsed to day shift nurse.
--- NOTE | 2018-04-30 07:54 | NUR ---
Start Of Shift / CIWA 8 Pt is a 52 y/o M admitted on 04/24/18 for medically supervised ETOH withdrawal. Pt completed a 5 day phenobarbital taper and is medically cleared to be discharged today. Pt will be going to [facility]. Received pt a/ox4, respirations even and unlabored. Pt has flushed skin, had just taken a shower, presents headache 4/10, anxiety, agitation, restlessness, dysphoria, anhedonia, and tremors are noted. Pt states she is ready to be discharged and leave detox. Side rails upx2, bed in lowest position. Call light is within reach. Safety measures in place. Will continue to monitor.
[2018-04-30 08:26] VITALS: BP 127/89
[2018-04-30] MEDS: ACETAMINOPHEN 325 MG TABLET PO PRN (08:36)
[2018-04-30] MEDS: THIAMINE HCL 100 MG TABLET PO SCH (08:36)
[2018-04-30] MEDS: DULOXETINE 30 MG CAPSULE.DR PO SCH (08:37)
[2018-04-30] MEDS: FOLIC ACID 1 MG TABLET PO SCH (08:37)
[2018-04-30] MEDS: IBUPROFEN 600 MG TABLET PO PRN (08:37)
[2018-04-30] MEDS: FLUOXETINE HCL 20 MG CAPSULE PO SCH (08:37)
[2018-04-30] MEDS: MULTIVITAMINS,THERAPEUTIC TABLET PO SCH (08:37)
--- NOTE | 2018-04-30 08:37 | NUR ---
PRN Tylenol and motrin po prn given for headache pain 5/10. Will monitor and reassess.
--- NOTE | 2018-04-30 09:30 | NUR ---
Reassessment Pt reports med as effective in decreasing headache to 1/10 pain and states she is ready for d/c.
--- NOTE | 2018-04-30 09:35 | NUR ---
Discharge Note Pt is in stable condition, VS are wnl. Pt has been given d/c instructions, when to seek out medical attention and pt verbalized understanding. Pt's last CIWA is 8. aware of pt d/c. Pt left the building on 04/30/18 on 09 with all belongings, home meds, prescriptions, and d/c paperwork. Pt has been picked up by [employer] transportation and has been taken to [facility].
== END 2018-04-30 09:35 | DRG 895 ==
LOC: SRC 20:33
PROVIDERS: ADMIT Internal Medicine; ATTEND Internal Medicine
DX: F10.230 Alcohol dependence with withdrawal, uncomplicated (principal); F33.2 Major depressive disorder, recurrent severe without psychotic features; E83.42 Hypomagnesemia; E78.5 Hyperlipidemia, unspecified; F41.9 Anxiety disorder, unspecified; G89.29 Other chronic pain; M54.5 Low back pain; Z81.1 Family history of alcohol abuse and dependence; R73.03 Prediabetes; I10 Essential (primary) hypertension; Z90.710 Acquired absence of both cervix and uterus; R41.3 Other amnesia; Y90.6 Blood alcohol level of 120-199 mg/100 ml
CPT/HCPCS: 36415; 70030-TC; 80307; 83690; 83735; 84443; 84703; 85025; 86592; 86705; 86803; 87340; 87806; A4663; G0480; J8499; Q0162; Q0163